=== PATIENT | female | born 1980 | race Caucasian/White ===

== ENCOUNTER → 2018-10-06 | Outpatient (CLI) | payer BC ==
[~2018-10-06] MED LIST: ALDOMET 250MG250 MG PO; INDERAL 10MG10 MG; MOTRIN 800800 MG/TAB PO; PERCOCET 325 MG1 TA2 PO; PRENATAL VITAMI1 TA5 PO; ZANTAC 150150 MG PO
[2018-10-06 14:09] LABS: CREATININE, serum 0.96 (0.52-1.25)
== END ==
LOC: COL.LAB 13:42
PROVIDERS: Otolaryngology
DX: R91.1 Solitary pulmonary nodule (principal)

== ENCOUNTER → 2018-12-22 | Outpatient (CLI) | payer BC | LOC: MC.RAD 10:08 | DX: N63.20 Unspecified lump in the left breast, unspecified quadrant (principal) | CPT/HCPCS: G0279 ==

== ENCOUNTER → 2018-12-23 | Outpatient (CLI) | payer BC | LOC: MC.RAD 07:00 | DX: N63.20 Unspecified lump in the left breast, unspecified quadrant (principal); R92.8 Other abnormal and inconclusive findings on diagnostic imaging of breast ==